=== PATIENT | female | born 1955 | race Caucasian/White ===

== ENCOUNTER → 2016-03-02 | Outpatient (CLI) | payer MEDICARE, OTHER ==
[2016-03-02 14:48] VITALS: BP 117/83; PULSE 68; RESP 16; TEMP 97.3; BMI 33.8
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
== END | disposition home or self-care (01) ==
LOC: BARWHC3 13:10
PROVIDERS: ATTEND Surgery
DX: Z48.815 Encounter for surgical aftercare following surgery on the digestive system (principal); Z98.84 Bariatric surgery status; F17.200 Nicotine dependence, unspecified, uncomplicated; Z86.14 Personal history of Methicillin resistant Staphylococcus aureus infection; K21.9 Gastro-esophageal reflux disease without esophagitis; L98.9 Disorder of the skin and subcutaneous tissue, unspecified
CPT/HCPCS: 99211

== ENCOUNTER → 2016-03-30 | Outpatient (CLI) | payer MEDICARE, OTHER ==
[2016-03-30 13:06] VITALS: BP 110/68; PULSE 75; RESP 16; TEMP 99.2; BMI 34.2
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
== END | disposition home or self-care (01) ==
LOC: BARWHC3 12:47
PROVIDERS: ATTEND Surgery
DX: Z48.815 Encounter for surgical aftercare following surgery on the digestive system (principal); Z98.84 Bariatric surgery status; K21.9 Gastro-esophageal reflux disease without esophagitis; Z68.34 Body mass index [BMI] 34.0-34.9, adult; Z86.14 Personal history of Methicillin resistant Staphylococcus aureus infection; F17.200 Nicotine dependence, unspecified, uncomplicated
CPT/HCPCS: 99211

== ENCOUNTER → 2016-04-27 | Outpatient (CLI) | payer MEDICARE, OTHER ==
[2016-04-27 13:17] VITALS: BP 105/60; PULSE 95; RESP 16; TEMP 98.3; BMI 32.1
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
== END | disposition home or self-care (01) ==
LOC: BARWHC3 12:52
PROVIDERS: ATTEND Surgery
DX: Z48.815 Encounter for surgical aftercare following surgery on the digestive system (principal); Z71.3 Dietary counseling and surveillance; K21.9 Gastro-esophageal reflux disease without esophagitis; Z68.32 Body mass index [BMI] 32.0-32.9, adult; F17.200 Nicotine dependence, unspecified, uncomplicated; Z79.899 Other long term (current) drug therapy; Z98.84 Bariatric surgery status
CPT/HCPCS: 97803; G0463; 99211

== ENCOUNTER → 2016-05-25 | Outpatient (CLI) | payer MEDICARE, OTHER ==
[2016-05-25 09:20] VITALS: BP 104/73; PULSE 77; TEMP 98.1; BMI 31.6
[2016-05-25 10:06] LABS: CH 27.7; CHCM 32.8; HCT 43.6 % (34.0-46.0); HDW 2.69; HGB 14.4 gm/dL (11.4-16.0); MCHC 33.1 g/dL (31.0-37.0); MCV 84.5 fL (80.0-100.0); Mean Platelet Volume 6.2; RBC 5.16 m/uL (3.80-5.40); RDW 14.6 % (11.5-15.5); WBC 4.4 k/uL (3.8-10.6)
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
[2016-05-25 15:10] LABS: ALT 19 U/L (9-52); AST 20 U/L (14-36); Alkaline Phosphatase 100 U/L (38-126); Anion Gap 9 mmol/L; Blood Urea Nitrogen 9 mg/dL (7-17); Calcium 9.8 mg/dL (8.4-10.2); Carbon Dioxide 28 mmol/L (22-30); Chloride 101 mmol/L (98-107); Glucose 91 mg/dL (74-99); Non-African American GFR(MDRD) >60 (>60 ml/min/1.73 sqM); Sodium 138 mmol/L (137-145); Total Bilirubin 0.5 mg/dL (0.2-1.3); Total Protein 6.5 g/dL (6.3-8.2)
[2016-05-25 16:15] LABS: Vitamin B12 445 pg/mL (239-931)
== END | disposition home or self-care (01) ==
LOC: BARWHC3 09:10
PROVIDERS: ATTEND Surgery
DX: Z09 Encounter for follow-up examination after completed treatment for conditions other than malignant neoplasm (principal); M79.7 Fibromyalgia; E78.5 Hyperlipidemia, unspecified; I25.2 Old myocardial infarction; M19.90 Unspecified osteoarthritis, unspecified site; F41.9 Anxiety disorder, unspecified; F32.9 Major depressive disorder, single episode, unspecified; F43.10 Post-traumatic stress disorder, unspecified; F17.200 Nicotine dependence, unspecified, uncomplicated; F20.9 Schizophrenia, unspecified; F41.0 Panic disorder [episodic paroxysmal anxiety]; E55.9 Vitamin D deficiency, unspecified; Z98.84 Bariatric surgery status
CPT/HCPCS: 84425; 80053; 82607; 82746; 84590; 85027; 82306; G0463; 99211

== ENCOUNTER → 2016-06-22 | Outpatient (CLI) | payer MEDICARE, OTHER ==
[2016-06-22 13:22] VITALS: BP 104/77; PULSE 76; RESP 16; TEMP 98.3; BMI 30.9
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
== END | disposition home or self-care (01) ==
LOC: BARWHC3 13:09
PROVIDERS: ATTEND Surgery
DX: Z09 Encounter for follow-up examination after completed treatment for conditions other than malignant neoplasm (principal); M79.7 Fibromyalgia; E78.5 Hyperlipidemia, unspecified; I25.2 Old myocardial infarction; F17.200 Nicotine dependence, unspecified, uncomplicated; Z98.84 Bariatric surgery status
CPT/HCPCS: 99211

== ENCOUNTER → 2016-08-11 | Outpatient (CLI) | payer MEDICARE, OTHER ==
--- NOTE | 2016-08-11 12:07 | XR ---
EXAMINATION TYPE: XR lumbar spine 2 or 3V DATE OF EXAM: 08/11/2016 COMPARISON: 01/28/2015 HISTORY: 60-year-old female with low back pain TECHNIQUE: 3 views FINDINGS: Cholecystectomy clips. Surgical staple lines at the GE junction and right paramedian upper abdomen. There is slight levoconvex curvature centered along the upper lumbar spine. 5 lumbar type ve rtebral bodies. Hypertrophic facet arthropathy mid to lower lumbar spine with redemonstrated prominen t grade 1 anterolisthesis at L4-L5. Otherwise, alignment is maintained and vertebral body heights are preserved. Moderate degenerative disc disease L5-S1 with disc space narrowing, endplate spondylosis, and vacuum phenomenon. IMPRESSION: 1. No vertebral compression collapse. 2. Redemonstrated hypertrophic facet arthropathy with prominent grade 1 L4-L5 anterolisthesis. 3. Moderate degenerative disc disease again seen at L5-S1.
== END | disposition home or self-care (01) ==
LOC: RADXRMAIN 11:39
PROVIDERS: ATTEND Family Medicine
DX: M43.16 Spondylolisthesis, lumbar region (principal); M51.37 Other intervertebral disc degeneration, lumbosacral region; M46.86 Other specified inflammatory spondylopathies, lumbar region
CPT/HCPCS: 72100

== ENCOUNTER → 2016-09-14 | Outpatient (CLI) | payer MEDICARE, OTHER ==
[2016-09-14 13:58] VITALS: BP 119/87; PULSE 66; RESP 16; TEMP 98.2; BMI 30.2
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
== END | disposition home or self-care (01) ==
LOC: BARWHC3 13:11
PROVIDERS: ATTEND Surgery
DX: Z09 Encounter for follow-up examination after completed treatment for conditions other than malignant neoplasm (principal); E78.5 Hyperlipidemia, unspecified; M79.7 Fibromyalgia; F17.200 Nicotine dependence, unspecified, uncomplicated; Z98.84 Bariatric surgery status; I25.2 Old myocardial infarction
CPT/HCPCS: 97803; G0463; 99211

== ENCOUNTER 2016-09-21 19:47 | Inpatient (IN) | payer MEDICARE, MEDICAID ==
[2016-09-21 20:35] LABS: Appearance,Urine Cloudy (Clear); Bacteria,Urine Occasional /hpf; Bilirubin,Urine Negative (Negative); Glucose,Urine (UA) Negative (Negative); Ketones,Urine Trace (Negative); Leukocyte Esterase,Urine Moderate (Negative); Mucus,Urine Many /hpf; Nitrite,Urine Positive (Negative); PH, Urine 6.5 (5.0-8.0); Particle Count 48731; Protein,Urine Trace (Negative); RBC,Urine 4 /hpf (0-5); Specific Gravity,Urine 1.009 (1.001-1.035); UA Billing (MACRO vs. MICRO) MICRO; Urobilinogen,Urine <2.0 mg/dL (<2.0); WBC,Urine 25 /hpf (0-5)
[2016-09-21] MEDS ORDERED: SULFAMETHOX-TMP 800-160MG 1 EACH TAB PO STA (20:39)
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
[2016-09-21] MEDS ORDERED: MAGNESIUM HYDROXIDE 2,400 MG/10 ML CUP PO PRN (23:33)
[2016-09-21] MEDS ORDERED: ACETAMINOPHEN TAB 325 MG TAB PO PRN (23:33)
[2016-09-21] MEDS ORDERED: MAG HYDROX/AL HYDROX/SIMETH 30 ML CUP PO PRN (23:33)
[2016-09-22] MEDS: ASPIRIN 325 MG TAB PO SCH ×2 (07:58→08:07)
[2016-09-22] MEDS: PANTOPRAZOLE 40 MG TABLET PO SCH (07:58)
[2016-09-22] MEDS: lamoTRIgine 100 MG TAB PO SCH ×2 (08:01→21:33)
[2016-09-22] MEDS: OXYBUTYNIN CHLORIDE 5 MG TAB PO SCH ×2 (08:02→08:05)
[2016-09-22] MEDS: NICOTINE 21MG/24HR PATCH TRANSDERM SCH ×2 (08:02→08:04)
[2016-09-22] MEDS: busPIRone HCl 5 MG TAB PO SCH ×3 (08:06→12:31)
[2016-09-22] MEDS: QUEtiapine 50 MG TAB PO SCH ×2 (08:07→16:04)
[2016-09-22] MEDS ORDERED: busPIRone HCl 5 MG TAB PO SCH (09:00)
[2016-09-22] MEDS ORDERED: QUEtiapine 50 MG TAB PO SCH (09:00)
[2016-09-22] MEDS ORDERED: VENLAFAXINE HCL ER 75 MG CAP PO SCH (09:00)
[2016-09-22 09:09] LABS: Basophils % (A) 0 %; CH 28.7; CHCM 33.2; Eosinophils % (A) 1 %; HCT 38.7 % (34.0-46.0); HDW 2.83; HGB 12.8 gm/dL (11.4-16.0); Luc # (Auto) 0.12; Luc % (Auto) 3; Lymphocytes # (A) 1.4 k/uL (1.0-4.8); Lymphocytes % (A) 32 %; MCH 28.8 pg (25.0-35.0); MCV 87.1 fL (80.0-100.0); Mean Platelet Volume 6.6; Monocytes # (A) 0.3 k/uL (0-1.0); Monocytes % (A) 6 %; Neutrophils # (A) 2.6 k/uL (1.3-7.7); Neutrophils % (A) 59 %; RBC 4.45 m/uL (3.80-5.40); RDW 13.9 % (11.5-15.5); WBC 4.4 k/uL (3.8-10.6); WBC (Perox) 5.06
[2016-09-22 09:21] LABS: ALT 21 U/L (9-52); AST 22 U/L (14-36); Alkaline Phosphatase 74 U/L (38-126); Anion Gap 6 mmol/L; Blood Urea Nitrogen 12 mg/dL (7-17); Carbon Dioxide 30 mmol/L (22-30); Chloride 105 mmol/L (98-107); Glucose 95 mg/dL (74-99); Non-African American GFR(MDRD) >60 (>60 ml/min/1.73 sqM); Potassium 3.2 mmol/L (3.5-5.1); Sodium 141 mmol/L (137-145); Total Bilirubin 0.5 mg/dL (0.2-1.3); Total Protein 6.1 g/dL (6.3-8.2)
[2016-09-22] MEDS: SYMBICORT 80-4.5 MCG INHALER INHALATION SCH ×2 (10:26→20:26)
[2016-09-22] MEDS: clonazePAM 0.5 MG TAB PO PRN ×2 (12:33→21:54)
[2016-09-22] MEDS: SERTRALINE 100 MG TAB PO SCH (13:26)
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
[2016-09-22] MEDS ORDERED: QUEtiapine 400 MG TAB PO SCH (21:00)
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
[2016-09-23] MEDS: busPIRone HCl 5 MG TAB PO SCH ×4 (08:36→20:55)
[2016-09-23] MEDS: QUEtiapine 50 MG TAB PO SCH (08:37)
[2016-09-23] MEDS: PANTOPRAZOLE 40 MG TABLET PO SCH (08:37)
[2016-09-23] MEDS: SERTRALINE 100 MG TAB PO SCH (08:37)
[2016-09-23] MEDS: VENLAFAXINE HCL ER 75 MG CAP PO SCH (08:37)
[2016-09-23] MEDS: lamoTRIgine 100 MG TAB PO SCH ×2 (08:38→20:54)
[2016-09-23] MEDS: NICOTINE 21MG/24HR PATCH TRANSDERM SCH (08:39)
[2016-09-23] MEDS: ASPIRIN 325 MG TAB PO SCH (08:39)
[2016-09-23] MEDS: clonazePAM 0.5 MG TAB PO PRN (08:40)
[2016-09-23] MEDS: HYDROcodone/APAP 5-325MG 1 EACH TAB PO PRN ×2 (08:40→20:58)
[2016-09-23] MEDS: SYMBICORT 80-4.5 MCG INHALER INHALATION SCH ×2 (09:22→21:02)
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
[2016-09-23] MEDS ORDERED: hydrOXYzine PAMOATE 25 MG CAP PO PRN (15:21)
[2016-09-23] MEDS: QUEtiapine 400 MG TAB PO SCH (20:54)
[2016-09-23] MEDS: clonazePAM 0.5 MG TAB PO SCH (20:54)
[2016-09-23] MEDS: QUEtiapine 100 MG TAB PO SCH (20:55)
[2016-09-23] MEDS: NITROFURANTOIN MONOHYD/M-CRYST 100 MG CAP PO SCH (23:28)
[2016-09-24] MEDS: PANTOPRAZOLE 40 MG TABLET PO SCH (08:02)
[2016-09-24] MEDS: NICOTINE 21MG/24HR PATCH TRANSDERM SCH (08:06)
[2016-09-24] MEDS: HYDROcodone/APAP 5-325MG 1 EACH TAB PO PRN ×2 (08:07→20:07)
[2016-09-24] MEDS: busPIRone HCl 5 MG TAB PO SCH ×3 (08:08→20:06)
[2016-09-24] MEDS: clonazePAM 0.5 MG TAB PO SCH ×2 (08:09→20:06)
[2016-09-24] MEDS: ASPIRIN 325 MG TAB PO SCH (08:09)
[2016-09-24] MEDS: OXYBUTYNIN CHLORIDE 5 MG TAB PO SCH (08:09)
[2016-09-24] MEDS: lamoTRIgine 100 MG TAB PO SCH ×2 (08:10→20:06)
[2016-09-24] MEDS: SERTRALINE 100 MG TAB PO SCH (08:10)
[2016-09-24] MEDS: NITROFURANTOIN MONOHYD/M-CRYST 100 MG CAP PO SCH ×2 (08:10→20:06)
[2016-09-24] MEDS: SYMBICORT 80-4.5 MCG INHALER INHALATION SCH ×2 (09:29→21:26)
[2016-09-24] MEDS: VENLAFAXINE HCL ER 75 MG CAP PO SCH (09:50)
--- NOTE | 2016-09-24 14:14 | P.PN ---
Progress Note - Text INTERVERAL HISTORY: Patient was discussed at treatment team meeting, record review, met with patient. Staff reports that patient continues to not allow us to contact anyone when her family. Patient reports today that she is feeling better, she denies suicidal ideation. When asked about having a reason to live she says she still does not have any reason but just plans on living. Asked when she'd be able to go home. She denies having any problems with the reduction in the Klonopin i.e. no anxiety no insomnia. She has plans to go camping starting next week hopes that she'll be out so she can go. She denies feeling hopeless denies feeling useless and denies suicidal ideation. MENTAL STATUS EXAM:Patient alert and oriented 3, good eye contact, well groomed in street clothing. Speech normal volume, rate and production. Coherent, logical and goal directed thought process. No LAZARO, no FOI. [No TB/TW/ TI] Denied auditory and visual hallucinations. Denied paranoid ideation, delusions or IOR. Mood euthymic, affect full range normal intensity, congruent with mood. Denies suicidal ideation, denies homicidal ideation. Insight limited; Judgment grossly intact for treatment purposes ASSESSMENT: Today patient has a completely different mood and affect, she is euthymic and full range, she denies suicidal ideation and today it seems more convincing than yesterday. Could possibly be that the Seroquel during the day was sedating enough that she gave an appearance of being depressed. She had no anxiety and no insomnia with the reduction of Klonopin. Major depressive disorder, recurrent, moderate PLAN: Continue inpatient psychiatric admission for safety and stabilization. Suicide precaution every 15 minute checks Reduce Klonopin .25MG twice a day. Reduce Effexor to 37.5 mg tomorrow morning Increase Zoloft to 150 mg daily. Continue Seroquel 500 mg at bedtime Milieu therapy Possible discharge tomorrow SW to arrange follow-up with Dr. Marie and Celine
[2016-09-24] MEDS: QUEtiapine 100 MG TAB PO SCH (20:06)
[2016-09-24] MEDS: QUEtiapine 400 MG TAB PO SCH (20:06)
[2016-09-25 06:41] VITALS: BP 116/62; PULSE 59; RESP 16; TEMP 98.1
[2016-09-25] MEDS: HYDROcodone/APAP 5-325MG 1 EACH TAB PO PRN ×2 (08:15→15:23)
[2016-09-25] MEDS: NICOTINE 21MG/24HR PATCH TRANSDERM SCH (08:16)
[2016-09-25] MEDS: PANTOPRAZOLE 40 MG TABLET PO SCH (08:16)
[2016-09-25] MEDS: clonazePAM 0.5 MG TAB PO SCH (08:16)
[2016-09-25] MEDS: lamoTRIgine 100 MG TAB PO SCH (08:17)
[2016-09-25] MEDS: busPIRone HCl 5 MG TAB PO SCH ×2 (08:17→16:05)
[2016-09-25] MEDS: ASPIRIN 325 MG TAB PO SCH (08:17)
[2016-09-25] MEDS: OXYBUTYNIN CHLORIDE 5 MG TAB PO SCH (08:17)
[2016-09-25] MEDS: SERTRALINE 100 MG TAB PO SCH (08:17)
[2016-09-25] MEDS: NITROFURANTOIN MONOHYD/M-CRYST 100 MG CAP PO SCH (08:18)
[2016-09-25] MEDS ORDERED: VENLAFAXINE HCL ER 37.5 MG CAP PO SCH (09:00)
[2016-09-25] MEDS: SYMBICORT 80-4.5 MCG INHALER INHALATION SCH (09:30)
--- NOTE | 2016-09-25 10:12 | P.DS ---
Providers Date of admission: 09/21/16 21:59 Expected date of discharge: 09/25/16 Attending physician: Latonia Townsend MD Consults: 09/21/16 23:33 Consult Physician Routine Consulting Provider: Sd Casillas Consult Reason/Comments: H and P Do you want consulting provider notified?: Yes 09/23/16 17:28 Consult Physician Routine Consulting Provider: Sd Casillas Consult Reason/Comments: Abnormal UA Do you want consulting provider notified?: Yes Primary care physician: Sd Casillas Hospital Course: BRIEF ADMISSION HISTORY: Patient was admitted after a two-month period of increasing depression. States she had been doing okay on a day-to-day basis and not bothered by serious depression until spring of this year then through the month of August the depression seemed to be building up for her. On Wednesday prior to the admission she was at a family gathering and she felt that her children were treating her in a demeaning way she reported that she took a pill that she is prescribed and her daughter told her that she was using too many of her medications. She then became suicidal after her son refused to speak with her she felt she had no reason to live and came to the hospital. HOSPITAL COURSE: Patient had recently seen her outpatient psychiatrist who is titrating Effexor down and starting Zoloft. She is also prescribed Seroquel at night and during the day. She also reportedly has a diagnosis of ADHD and is prescribed Adderall , and also Klonopin. Staff reported that there is some history of stimulant use or misuse. She was not reporting any auditory hallucinations, she was just feeling that life was not worth living. Patient did not participate in any of the groups she was found frequently in her room reading or laying down stating that she was not sleeping. Rviewed her medication and made a recommendation that we continue to increase the Zoloft and taper down on the Effexor. Increase BuSpar 15 mg 3 times a day. She agreed we also changed the time of her quetiapine/Seroquel so that is taken all at bedtime. At the same time we decided to reduce her Klonopin with also the recommendation that she not take a stimulant. She was less enthusiastic about this change. She tolerated this change without any increase in anxiety and she became more interactive, with full affect. By the last 2 days of her admission she was participating with groups and communicating more with staff and other patients. Patient reported that she felt better, more alert, and did not notice any increase in anxiety with the reduction of the Klonopin. She asked what to do when she has a panic attack we recommended that she use the Vistaril as a first line and that if she doesn't feel better within an hour that she could use the when necessary dose of Klonopin but that it should not be used on a daily basis. She denied suicidal ideation however she refused to allow us to have a family conference her reasoning was that she doesn't get support when she is home why should she ask for support while she is in the hospital. We've visited this several times to see if she would change her mind and she did not but on the last day she did call her daughter and her daughter offered to come pick her up rather than she taking the bus home. No psychosis, no nicolás, no hypomania. No suicidal ideation, no plan. DISCHARGE DIAGNOSES: MDD vs Schizoaffective disorder, Suicide ideation, resolved Family conflict R/O stimulant use disorder R/O benzodiazepine use disorder PLAN: Discharge today. Medication change: Discontinue Effexor. Continue Zoloft 100 mg daily. Seroquel 500 mg daily at bedtime, no daytime dosage. Discontinue Adderall. Vistaril 25 mg by mouth 4 times a day when necessary anxiety Klonopin 0.25 mg daily PRN severe anxiety, strived to not use on a daily basis and eventually stop completely. Pertinent Studies: none Procedures: none Plan - Discharge Summary New Discharge Prescriptions: New busPIRone HCl [Buspar] 15 mg PO TID #90 tab clonazePAM [KlonoPIN] 0.25 mg PO DAILY PRN #30 tab PRN Reason: Anxiety hydrOXYzine PAMOATE [Vistaril] 25 mg PO QID PRN #120 cap PRN Reason: Anxiety Nitrofurantoin Monohyd/M-Cryst [Macrobid] 100 mg PO BID #20 cap QUEtiapine [SEROquel] 100 mg PO HS #30 tab Sertraline [Zoloft] 100 mg PO DAILY #30 tab Continue Oxybutynin Chloride [Ditropan] 10 mg PO DAILY Aspirin 325 mg PO DAILY Fluticasone/Vilanterol [Breo Ellipta 100-25 Mcg Inhaler] 1 puff INHALATION RT -DAILY HYDROcodone/APAP 10-325MG [[place] 10-325] 1 tab PO Q6H PRN #28 tab PRN Reason: Pain QUEtiapine [SEROquel] 400 mg PO HS lamoTRIgine [LaMICtal] 100 mg PO BID Omeprazole [PriLOSEC] 40 mg PO DAILY Discontinued busPIRone HCL [Buspar] 15 mg PO BID #60 tablet Dextroamphetamine/Amphetamine [Adderall] 20 mg PO BID QUEtiapine [SEROquel] 50 mg PO BID clonazePAM [KlonoPIN] 0.5 mg PO BID busPIRone HCl [Buspar] 5 mg PO QAM Venlafaxine HCl ER [Effexor XR] 75 mg PO BID clonazePAM [KlonoPIN] 1 mg PO HS Sertraline [Zoloft] 25 mg PO QAM Discharge Medication List Aspirin 325 mg PO DAILY 07/15/13 [History] Oxybutynin Chloride [Ditropan] 10 mg PO DAILY 07/15/13 [History] Fluticasone/Vilanterol [Breo Ellipta 100-25 Mcg Inhaler] 1 puff INHALATION RT- DAILY 07/01/15 [History] HYDROcodone/APAP 10-325MG [[place] 10-325] 1 tab PO Q6H PRN #28 tab 07/10/15 [Rx] QUEtiapine [SEROquel] 400 mg PO HS 01/16/16 [History] Omeprazole [PriLOSEC] 40 mg PO DAILY 09/21/16 [History] lamoTRIgine [LaMICtal] 100 mg PO BID 09/21/16 [History] Nitrofurantoin Monohyd/M-Cryst [Macrobid] 100 mg PO BID #20 cap 09/25/16 [Rx] QUEtiapine [SEROquel] 100 mg PO HS #30 tab 09/25/16 [Rx] Sertraline [Zoloft] 100 mg PO DAILY #30 tab 09/25/16 [Rx] busPIRone HCl [Buspar] 15 mg PO TID #90 tab 09/25/16 [Rx] clonazePAM [KlonoPIN] 0.25 mg PO DAILY PRN #30 tab 09/25/16 [Rx] hydrOXYzine PAMOATE [Vistaril] 25 mg PO QID PRN #120 cap 09/25/16 [Rx] Follow up Appointment(s)/Referral(s): Sd Casillas MD [Primary Care Provider] - 1-2 days
== END 2016-09-25 17:15 | disposition home or self-care (01) | DRG 885 ==
LOC: EC 19:47 → 3MHU 21:59
PROVIDERS: ADMIT Psychiatry & Neurology Addiction Medicine; ATTEND Psychiatry & Neurology Addiction Medicine
DX: F33.1 Major depressive disorder, recurrent, moderate (principal); R45.851 Suicidal ideations; G62.9 Polyneuropathy, unspecified; F25.0 Schizoaffective disorder, bipolar type; E78.5 Hyperlipidemia, unspecified; F17.200 Nicotine dependence, unspecified, uncomplicated; F41.0 Panic disorder [episodic paroxysmal anxiety]; F43.10 Post-traumatic stress disorder, unspecified; F90.9 Attention-deficit hyperactivity disorder, unspecified type; I25.2 Old myocardial infarction; M19.90 Unspecified osteoarthritis, unspecified site; M79.7 Fibromyalgia; G89.29 Other chronic pain; M54.9 Dorsalgia, unspecified; F41.9 Anxiety disorder, unspecified; Z62.810 Personal history of physical and sexual abuse in childhood; Z63.9 Problem related to primary support group, unspecified; Z79.82 Long term (current) use of aspirin; Z79.899 Other long term (current) drug therapy; Z91.410 Personal history of adult physical and sexual abuse; Z96.653 Presence of artificial knee joint, bilateral; Z86.14 Personal history of Methicillin resistant Staphylococcus aureus infection; Z91.5 Personal history of self-harm; Z98.84 Bariatric surgery status
CPT/HCPCS: 80053; 80306; 81001; 82075; 85025; 87086; 94640; 99285

== ENCOUNTER → 2016-10-26 | Outpatient (CLI) | payer MEDICARE, OTHER ==
[2016-10-26 15:06] VITALS: BP 113/83; PULSE 61; RESP 16; TEMP 98.3; BMI 27.8
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
== END ==
LOC: BARWHC3 14:08
PROVIDERS: ATTEND Surgery
DX: Z48.815 Encounter for surgical aftercare following surgery on the digestive system (principal); Z98.84 Bariatric surgery status; K21.9 Gastro-esophageal reflux disease without esophagitis; F17.200 Nicotine dependence, unspecified, uncomplicated
CPT/HCPCS: 99211

== ENCOUNTER → 2016-12-21 | Outpatient (CLI) | payer MEDICARE, OTHER ==
[2016-12-21 14:23] VITALS: BMI 25.9
[2016-12-21 15:13] VITALS: BP 118/75; PULSE 68; RESP 15; TEMP 97.1
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
== END ==
LOC: BARWHC3 13:14
PROVIDERS: ATTEND Surgery
DX: Z48.815 Encounter for surgical aftercare following surgery on the digestive system (principal); Z98.84 Bariatric surgery status; F17.200 Nicotine dependence, unspecified, uncomplicated
CPT/HCPCS: 97803; G0463; 99211

== ENCOUNTER → 2017-06-10 | Outpatient (CLI) | payer MEDICARE, OTHER ==
--- NOTE | 2017-06-10 18:11 | CTL ---
EXAMINATION TYPE: CT Low Dose Lung DATE OF EXAM ORDERED: 06/10/2017 HISTORY: . Lung cancer screening CT DLP: [address] CTDI: 2.2 mGy Automated exposure control for dose reduction was used. SCREENING VISIT: Follow-up COMPARISON: 08/14/2015 TECHNIQUE: Low dose computed tomography scan was performed through the chest at 1 mm thick sections a nd reconstructed images in the coronal plane at [address] DIAGNOSTIC QUALITY: Satisfactory FINDINGS: LUNG NODULES: None. LUNGS: COPD: Severity: Mild Fibrosis: Severity: None Lymph nodes: None Other findings: None RIGHT PLEURAL SPACE: Effusion: None Calcification: None Thickening: None Pneumothorax: None LEFT PLEURAL SPACE: Effusion: None Calcification: None Thickening: None Pneumothorax: None HEART: Heart Size: Normal Coronary calcification: Moderate Pericardial effusion: None OTHER FINDINGS: Upper abdomen: Small hiatal hernia is present. Upper abdomen is unremarkable. Bony thorax: Normal Supraclavicular region: Normal Other: Ascending thoracic aorta at the level the main pulmonary artery is 3.5 cm. The main pulmonary artery the bifurcation is 2.5 cm. IMPRESSION: No suspicious changes. FOLLOW UP CT CHEST RECOMMENDATION: Low dose screening CT per protocol CT LUNG RAD: Lung-Rad 1 Negative
== END | disposition home or self-care (01) ==
LOC: RADCTMAIN 14:36
PROVIDERS: ATTEND Family Medicine
DX: Z12.2 Encounter for screening for malignant neoplasm of respiratory organs (principal); Z87.891 Personal history of nicotine dependence

== ENCOUNTER → 2017-07-19 | Outpatient (CLI) | payer MEDICARE, OTHER ==
[2017-07-19 15:03] VITALS: BP 118/87; PULSE 67; TEMP 98.2; BMI 28.2
[2017-07-19 15:46] LABS: HCT 36.5 % (34.0-46.0); MCH 27.2 pg (25.0-35.0); MCHC 32.8 g/dL (31.0-37.0); MCV 83.2 fL (80.0-100.0); Mean Platelet Volume 6.1; Platelet Count 291 k/uL (150-450); RBC 4.39 m/uL (3.80-5.40); RDW 14.9 % (11.5-15.5); WBC 4.7 k/uL (3.8-10.6)
[2017-07-19 15:56] LABS: ALT 25 U/L (9-52); AST 22 U/L (14-36); Albumin 4.2 g/dL (3.5-5.0); Alkaline Phosphatase 90 U/L (38-126); Anion Gap 10 mmol/L; Blood Urea Nitrogen 17 mg/dL (7-17); Calcium 9.8 mg/dL (8.4-10.2); Carbon Dioxide 29 mmol/L (22-30); Chloride 105 mmol/L (98-107); Glucose 86 mg/dL (74-99); Potassium 4.1 mmol/L (3.5-5.1); Sodium 144 mmol/L (137-145); Total Bilirubin 0.3 mg/dL (0.2-1.3); Total Protein 6.4 g/dL (6.3-8.2)
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
[2017-07-20 02:14] LABS: Vitamin D 25 Hydroxy 52.1 ng/mL (30.0-100.0)
[2017-07-20 14:01] LABS: Vitamin A 32 ug/dL (38-106)
[2017-07-21 05:43] LABS: Vitamin B1 53 ug/L (38-122)
== END | disposition home or self-care (01) ==
LOC: BARWHC3 13:59
PROVIDERS: ATTEND Surgery
DX: Z48.815 Encounter for surgical aftercare following surgery on the digestive system (principal); K21.9 Gastro-esophageal reflux disease without esophagitis; E66.01 Morbid (severe) obesity due to excess calories; E44.0 Moderate protein-calorie malnutrition; E55.9 Vitamin D deficiency, unspecified; F17.200 Nicotine dependence, unspecified, uncomplicated; Z68.28 Body mass index [BMI] 28.0-28.9, adult; Z98.84 Bariatric surgery status
CPT/HCPCS: 84425; 80053; 82607; 84443; 84590; 85027; 82306; 36415; G0463; 99211

== ENCOUNTER 2017-08-13 16:00 | Emergency (ER) | payer MEDICARE, OTHER ==
[2017-08-13 16:22] VITALS: BP 93/64; PULSE 90; RESP 18; TEMP 98.2
[2017-08-13] MEDS ORDERED: PROPARACAINE 0.5% OPHTH DROPS 15 ML BTL RIGHT EYE STA (16:45)
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
[2017-08-13 17:34] LABS: Basophils % (A) 1 %; Eosinophils # (A) 0.2 k/uL (0-0.7); Eosinophils % (A) 4 %; HCT 35.7 % (34.0-46.0); HGB 11.6 gm/dL (11.4-16.0); Lymphocytes # (A) 1.5 k/uL (1.0-4.8); Lymphocytes % (A) 31 %; MCH 26.7 pg (25.0-35.0); MCHC 32.6 g/dL (31.0-37.0); Mean Platelet Volume 6.3; Monocytes # (A) 0.3 k/uL (0-1.0); Monocytes % (A) 5 %; Neutrophils # (A) 2.7 k/uL (1.3-7.7); Neutrophils % (A) 58 %; Platelet Count 288 k/uL (150-450); RBC 4.36 m/uL (3.80-5.40); RDW 15.3 % (11.5-15.5); WBC 4.7 k/uL (3.8-10.6)
[2017-08-13 17:52] LABS: ALT 26 U/L (9-52); AST 28 U/L (14-36); Albumin 4.2 g/dL (3.5-5.0); Alkaline Phosphatase 79 U/L (38-126); Anion Gap 9 mmol/L; Blood Urea Nitrogen 21 mg/dL (7-17); C Reactive Protein <5.0 mg/L (<10.0); Calcium 9.4 mg/dL (8.4-10.2); Carbon Dioxide 25 mmol/L (22-30); Chloride 105 mmol/L (98-107); Glucose 68 mg/dL (74-99); Sodium 139 mmol/L (137-145); Total Bilirubin 0.4 mg/dL (0.2-1.3); Total Protein 6.7 g/dL (6.3-8.2)
--- NOTE | 2017-08-13 18:04 | CT ---
EXAMINATION TYPE: CT orbits w con DATE OF EXAM: 08/13/2017 COMPARISON: NONE HISTORY: right eye pain, swelling, redness, loss of vision. CT DLP: 350 mGycm Automated exposure control for dose reduction was used. CONTRAST: Performed with IV Contrast, patient injected with 100 mL of Isovue 300. FINDINGS: There is normal aeration of the paranasal sinuses. There is bilateral patency of the ostiomeatal comp nick. There is no evidence of blowout fracture. Orbital margins are intact. There is no evidence of re tro-orbital mass. The globes are symmetric. There is no pathologic enhancement. Extraocular muscles a re symmetric. The maxilla is intact. There is no evidence of a sellar mass. Optic chiasm appears normal. Pituitary stalk is in the midline . IMPRESSION: NORMAL CT SCAN OF THE ORBITS.
== END 2017-08-13 19:20 | disposition home or self-care (01) ==
LOC: EC 16:00
DX: H10.9 Unspecified conjunctivitis (principal); L03.213 Periorbital cellulitis; I25.2 Old myocardial infarction; M19.90 Unspecified osteoarthritis, unspecified site; F41.9 Anxiety disorder, unspecified; F31.9 Bipolar disorder, unspecified; F43.10 Post-traumatic stress disorder, unspecified; F25.9 Schizoaffective disorder, unspecified; F17.200 Nicotine dependence, unspecified, uncomplicated; Z86.14 Personal history of Methicillin resistant Staphylococcus aureus infection; Z79.51 Long term (current) use of inhaled steroids; Z79.82 Long term (current) use of aspirin; Z79.899 Other long term (current) drug therapy
CPT/HCPCS: 36415; 80053; 85025; 86140; 87040; 70481; 99284; Q9967

== ENCOUNTER → 2017-08-16 | Outpatient (CLI) | payer MEDICARE, OTHER ==
[2017-08-16 15:58] LABS: Basophils % (A) 0 %; Eosinophils # (A) 0.3 k/uL (0-0.7); Eosinophils % (A) 6 %; HCT 35.5 % (34.0-46.0); HGB 11.4 gm/dL (11.4-16.0); Lymphocytes # (A) 1.4 k/uL (1.0-4.8); Lymphocytes % (A) 26 %; MCH 26.5 pg (25.0-35.0); MCV 82.8 fL (80.0-100.0); Mean Platelet Volume 6.5; Monocytes # (A) 0.3 k/uL (0-1.0); Monocytes % (A) 5 %; Neutrophils # (A) 3.4 k/uL (1.3-7.7); Neutrophils % (A) 61 %; Platelet Count 285 k/uL (150-450); RBC 4.29 m/uL (3.80-5.40); RDW 15.4 % (11.5-15.5); WBC 5.5 k/uL (3.8-10.6)
--- NOTE | 2017-08-16 16:26 | CT ---
EXAMINATION TYPE: CT sinus w con DATE OF EXAM: 08/16/2017 COMPARISON: CT orbits 08/13/2017 HISTORY: Attention orbits. Right eye swelling and redness x [address] DLP: 639 mGycm Automated exposure control for dose reduction was used. CONTRAST: CT scan of the facial bones is performed with IV Contrast, patient injected with 100 mL of Isovue M30 0. TECHNIQUE: CT scan of the sinuses is performed without contrast, axial images are obtained, coronal r eformatted images are also reviewed. FINDINGS: The paranasal sinuses including the frontal, ethmoid, sphenoid, and maxillary sinuses bila terally are well-aerated without abnormal opacification. The ostiomeatal complex is patent bilateral ly on the coronal images. Asymmetric increased size of the lacrimal gland on the right as compared to left. No evident abscess. Visualized portion of mastoid air cells show no abnormal opacification. The globes are intact bilate rally. IMPRESSION: Dacryoadenitis suspected right lacrimal gland
== END | disposition home or self-care (01) ==
LOC: RADCTMAIN 15:20
PROVIDERS: ATTEND Ophthalmology
DX: H04.009 Unspecified dacryoadenitis, unspecified lacrimal gland (principal); H05.011 Cellulitis of right orbit
CPT/HCPCS: 85025; 87040; 36415; 70487; Q9967

== ENCOUNTER → 2017-09-06 | Outpatient (CLI) | payer MEDICARE, OTHER ==
--- NOTE | 2017-09-06 15:47 | XR ---
EXAMINATION TYPE: XR abdomen 2V DATE OF EXAM: 09/06/2017 CLINICAL DATA: 61 year-old female with vomiting, [facility] COMPARISON: Upper GI 01/21/2016 FINDINGS: S-shaped scoliosis. Surgical clips below the GE junction and mid abdomen as well as cholecystectomy c lips. Nonobstructive bowel gas pattern. No dilated bowel or free air. Mild stool burden. Multiple phleboliths in the pelvis. No suspicious calcifications are seen. IMPRESSION: Status post sleeve gastrectomy. No evidence of bowel obstruction or free intraperitoneal air.
== END | disposition home or self-care (01) ==
LOC: RADXRMAIN 12:37
PROVIDERS: ATTEND Family Medicine
DX: R19.7 Diarrhea, unspecified (principal); R11.10 Vomiting, unspecified; Z90.3 Acquired absence of stomach [part of]
CPT/HCPCS: 74019

== ENCOUNTER → 2017-09-20 | Outpatient (CLI) | payer MEDICARE, OTHER ==
[2017-09-20 13:13] VITALS: BP 137/83; PULSE 80; TEMP 98.2
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
[2017-09-21 13:46] VITALS: BMI 26.6
== END | disposition home or self-care (01) ==
LOC: BARWHC3 13:01
PROVIDERS: ATTEND Surgery
DX: Z09 Encounter for follow-up examination after completed treatment for conditions other than malignant neoplasm (principal); F17.200 Nicotine dependence, unspecified, uncomplicated; K21.9 Gastro-esophageal reflux disease without esophagitis; Z98.84 Bariatric surgery status; Z90.49 Acquired absence of other specified parts of digestive tract; Z95.5 Presence of coronary angioplasty implant and graft; Z98.890 Other specified postprocedural states; Z96.653 Presence of artificial knee joint, bilateral
CPT/HCPCS: 99211

== ENCOUNTER → 2017-09-30 | Outpatient (CLI) | payer MEDICARE, OTHER ==
[2017-09-30 19:06] LABS: Basophils % (A) 0 %; Eosinophils # (A) 0.1 k/uL (0-0.7); Eosinophils % (A) 2 %; HCT 36.7 % (34.0-46.0); Lymphocytes # (A) 1.4 k/uL (1.0-4.8); Lymphocytes % (A) 19 %; MCH 26.3 pg (25.0-35.0); MCHC 32.6 g/dL (31.0-37.0); MCV 80.5 fL (80.0-100.0); Mean Platelet Volume 6.3; Monocytes # (A) 0.3 k/uL (0-1.0); Monocytes % (A) 4 %; Neutrophils # (A) 5.6 k/uL (1.3-7.7); Neutrophils % (A) 75 %; Platelet Count 366 k/uL (150-450); RBC 4.56 m/uL (3.80-5.40); RDW 14.4 % (11.5-15.5); WBC 7.6 k/uL (3.8-10.6)
[2017-09-30 19:21] LABS: Albumin 4.1 g/dL (3.5-5.0); Calcium 9.3 mg/dL (8.4-10.2); Total Bilirubin 0.3 mg/dL (0.2-1.3); Total Protein 6.6 g/dL (6.3-8.2)
[2017-09-30 19:54] LABS: Erythrocyte Sedimentation Rate 8 mm/hr (0-20)
--- NOTE | 2017-09-30 23:22 | MR ---
EXAMINATION TYPE: MR brain/orbits wo/w con DATE OF EXAM: 09/30/2017 COMPARISON: February 16, 2014 HISTORY: Headaches, Dizzy, Visual loss, Gadavist 7.5 TECHNIQUE: Multiplanar, multisequence images of the brain and brainstem is performed without and with IV contras t, utilizing 7.5 mL intravenous Gadavist . FINDINGS: Ventricles of normal size. There is no mass effect nor midline shift. There is no sign of i ntracranial hemorrhage. There is minimal cerebral cortical atrophy. Brainstem is intact. On the FLAIR images there is a single 3 mm focus of increased signal at the carpenter-white matter junction right post erior frontal lobe. This is stable compared to old exam. Corpus callosum appears normal. Sella turcic a is normal. There is no evidence of a cortical infarct. There is no retro-orbital mass. The globes a re symmetric. There is no evidence of pathologic enhancement. Optic chiasm appears normal. Pituitary stalk is in the midline. IMPRESSION: Negative MR scan of the brain. I do not see a cause for the patient's symptoms. Minimal w wilberto matter changes are diminished compared to old exam. No orbital abnormality seen.
[2017-10-01 01:36] LABS: Anti-DNA, DS unit <1.0 IU/mL; DNA Double-Stranded NEGATIVE (NEGATIVE)
[2017-10-02 04:48] LABS: Angiotensin-1 Converting Enz. 39 U/L (8-52)
[2017-10-02 13:33] LABS: HLA B27 NEGATIVE
== END | disposition home or self-care (01) ==
LOC: RADMRIMAIN 18:21
PROVIDERS: ATTEND Ophthalmology
DX: H54.7 Unspecified visual loss (principal)
CPT/HCPCS: 85549; 86812; 80053; 85652; 82164; 85025; 86618; 86780; 86038; 86225; 70543; 70553; 36415; A9581

== ENCOUNTER → 2018-02-25 | Outpatient (CLI) | payer MEDICARE, OTHER ==
[2018-02-25 19:13] LABS: Hemoglobin A1C 5.4 % (4.0-6.0)
== END | disposition home or self-care (01) ==
LOC: LABWHC1 10:58
PROVIDERS: ATTEND Psychiatry & Neurology Neurology
DX: G60.8 Other hereditary and idiopathic neuropathies (principal); G56.03 Carpal tunnel syndrome, bilateral upper limbs; R29.6 Repeated falls
CPT/HCPCS: 36415; 82607; 82947; 83036

== ENCOUNTER → 2019-03-13 | Outpatient (CLI) | payer MEDICARE, OTHER ==
[2019-03-13 13:04] VITALS: BP 109/74; PULSE 61; RESP 16; TEMP 98.1; BMI 26.2
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
== END | disposition home or self-care (01) ==
LOC: BARWHC3 12:50
PROVIDERS: ATTEND Surgery
DX: Z48.815 Encounter for surgical aftercare following surgery on the digestive system (principal); K21.9 Gastro-esophageal reflux disease without esophagitis; F17.200 Nicotine dependence, unspecified, uncomplicated; Z90.49 Acquired absence of other specified parts of digestive tract; Z98.84 Bariatric surgery status
CPT/HCPCS: 99211

== ENCOUNTER 2020-04-11 07:53 | Day surgery (SDC) | payer MEDICARE, OTHER ==
[2020-04-09 11:20] VITALS: BMI 23.3
[~2020-04-11 07:53] MED LIST: LIDOCAINE 1% (10MG/ML) FOR IV START INTRADERMA PRN
[2020-04-11 08:43] VITALS: TEMP 97.8
[2020-04-11] MEDS: LACTATED RINGERS 1,000 ML IV SCH ×2 (08:43→09:16)
[2020-04-11] MEDS ORDERED: PROPOFOL 10 MG/ML 20 ML VIAL IV ONE (09:17)
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
--- NOTE | 2020-04-11 09:40 | P.OP ---
Date of Procedure: 04/11/20 Preoperative Diagnosis: Screening colonoscopy Postoperative Diagnosis: Poor colonic prep Normal colonoscopy to transverse colon Procedure(s) Performed: Colonoscopy Anesthesia: MAC Surgeon: Jose Alejandro Madera Pathology: none sent Condition: stable Disposition: PACU Description of Procedure: The patient's placed on the endoscopy table in the lateral position. She received IV sedation. Digital rectal exam was performed which revealed a large amount stool examined finger possible colonoscope was then placed patient anus passed with colon. The scope couldn't be passed beyond the transverse colon secondary to a large amount of retained stool. The scope was withdrawn. The remaining transverse colon descending colon and; appeared normal however due to the amount of liquid stool the mucosa was not easily visualized. The scope was then brought back the rectum this appeared normal. Scope withdrawn for patient.
[2020-04-11 10:04] VITALS: BP 114/76; PULSE 77; RESP 20
== END 2020-04-11 10:32 | disposition home or self-care (01) ==
LOC: ORWHC2ENDO 07:53
PROVIDERS: ATTEND Surgery
DX: Z12.11 Encounter for screening for malignant neoplasm of colon (principal); J45.909 Unspecified asthma, uncomplicated; M79.7 Fibromyalgia; K21.9 Gastro-esophageal reflux disease without esophagitis; E78.5 Hyperlipidemia, unspecified; I25.2 Old myocardial infarction; M19.90 Unspecified osteoarthritis, unspecified site; G62.9 Polyneuropathy, unspecified; G89.29 Other chronic pain; M54.9 Dorsalgia, unspecified; I25.10 Atherosclerotic heart disease of native coronary artery without angina pectoris; I10 Essential (primary) hypertension; F17.210 Nicotine dependence, cigarettes, uncomplicated; F90.9 Attention-deficit hyperactivity disorder, unspecified type; F41.9 Anxiety disorder, unspecified; F31.9 Bipolar disorder, unspecified; F41.0 Panic disorder [episodic paroxysmal anxiety]; Z86.14 Personal history of Methicillin resistant Staphylococcus aureus infection; Z98.84 Bariatric surgery status; Z90.49 Acquired absence of other specified parts of digestive tract; Z96.653 Presence of artificial knee joint, bilateral; Z98.890 Other specified postprocedural states; Z97.2 Presence of dental prosthetic device (complete) (partial); Z82.3 Family history of stroke; Z81.8 Family history of other mental and behavioral disorders; Z80.49 Family history of malignant neoplasm of other genital organs; Z80.41 Family history of malignant neoplasm of ovary; Z80.3 Family history of malignant neoplasm of breast; Z79.82 Long term (current) use of aspirin; Z79.51 Long term (current) use of inhaled steroids; Z79.899 Other long term (current) drug therapy
CPT/HCPCS: J2704; G0121

== ENCOUNTER 2020-12-11 19:32 | Observation (INO) | payer MEDICARE, OTHER ==
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
[2020-12-11 20:25] LABS: Anisocytosis Slight; Basophils % (A) 1 %; Eosinophils # (A) 0.3 k/uL (0-0.7); Eosinophils % (A) 7 %; HCT 29.2 % (34.0-46.0); HGB 9.2 gm/dL (11.4-16.0); Hypochromasia Slight; Lymphocytes # (A) 0.8 k/uL (1.0-4.8); Lymphocytes % (A) 19 %; MCH 21.9 pg (25.0-35.0); MCHC 31.3 g/dL (31.0-37.0); Mean Platelet Volume 6.4; Microcytosis Marked; Monocytes # (A) 0.2 k/uL (0-1.0); Monocytes % (A) 5 %; Neutrophils # (A) 2.8 k/uL (1.3-7.7); Neutrophils % (A) 66 %; Platelet Count 270 k/uL (150-450); RBC 4.18 m/uL (3.80-5.40); RDW 19.2 % (11.5-15.5); WBC 4.2 k/uL (3.8-10.6)
[2020-12-11 20:37] LABS: Acetaminophen <10.0 ug/mL; African American GFR (CKD) >90 (>60 ml/min/1.73 sqM); Alcohol <10 mg/dL; Anion Gap 4 mmol/L; Blood Urea Nitrogen 14 mg/dL (7-17); Calcium 9.2 mg/dL (8.4-10.2); Carbon Dioxide 26 mmol/L (22-30); Chloride 105 mmol/L (98-107); Creatine Kinase 106 U/L (30-135); Glucose 93 mg/dL (74-99); Non-African American GFR(CKD) >90 (>60 ml/min/1.73 sqM); Potassium 3.9 mmol/L (3.5-5.1); Salicylate <1.0 mg/dL; Sodium 135 mmol/L (137-145)
[2020-12-11 20:43] LABS: INR 0.9 (<1.2); Prothrombin Time 9.7 sec (9.0-12.0)
[2020-12-11 20:49] LABS: Partial Thromboplastin Time 21.7 sec (22.0-30.0)
--- NOTE | 2020-12-11 21:02 | XR ---
EXAMINATION TYPE: XR chest 1V portable DATE OF EXAM: 12/11/2020 COMPARISON: 07/15/2013 HISTORY: Syncope TECHNIQUE: FINDINGS: There is no heart failure nor confluent pneumonic infiltrate. Costophrenic angles are clear . There are chest leads. There is slight elevated right diaphragm. IMPRESSION: Mild elevation of the right diaphragm slightly increased compared to old exam.
--- NOTE | 2020-12-11 21:05 | CT ---
EXAMINATION TYPE: CT brain wo con DATE OF EXAM: 12/11/2020 COMPARISON: 05/21/2014 HISTORY: ams CT DLP: 1084.4 mGycm Automated exposure control for dose reduction was used. Ventricles and sulci appear normal. There is no mass effect nor midline shift. There is no sign of in tracranial hemorrhage. There is mild cerebral atrophy appropriate for age. The calvarium is intact. S kull base is intact. IMPRESSION: Mild atrophy. No acute intracranial abnormality. No change.
[2020-12-11] MEDS ORDERED: NALOXONE 0.4 MG/ML 1 ML VIAL IV PRN (22:17)
[2020-12-11 22:37] LABS: Amphetamine Screen,Urine Not Detected (NotDetected); Benzodiazepines Screen,Urine Not Detected (NotDetected); Cocaine Screen,Urine Not Detected (NotDetected); Opiate Screen,Urine Not Detected (NotDetected); Phencyclidine Screen,Urine Not Detected (NotDetected); Tricyclic Antidepressant,Urine Detected (NotDetected); Urn Cannabinoid Scrn Not Detected (NotDetected)
[2020-12-11 22:38] LABS: Barbiturate Screen,Urine Not Detected (NotDetected); Methadone Screen, Urine Not Detected (NotDetected); Oxycodone Screen, Urine Not Detected (NotDetected)
[2020-12-11] MEDS: SODIUM CHLORIDE 0.9% 1,000 ML IV SCH (22:43)
[2020-12-12] MEDS ORDERED: ALBUTEROL NEBULIZED 2.5 MG/3 ML INHALATION PRN (08:47)
[2020-12-12] MEDS ORDERED: IBUPROFEN 600 MG TAB PO PRN (08:47)
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
[2020-12-12] MEDS: OXYBUTYNIN 10 MG TAB.ER.24 PO SCH (10:18)
[2020-12-12] MEDS: SERTRALINE 100 MG TAB PO SCH (10:18)
[2020-12-12] MEDS: lamoTRIgine 100 MG TAB PO SCH ×2 (10:19→20:19)
[2020-12-12] MEDS: FAMOTIDINE 20 MG TAB PO SCH ×2 (10:19→20:19)
[2020-12-12] MEDS ORDERED: ATORVASTATIN 10 MG TAB PO SCH (21:00)
[2020-12-12] MEDS ORDERED: QUEtiapine 400 MG TAB PO SCH (21:00)
[2020-12-12] MEDS: SODIUM CHLORIDE 0.9% 1,000 ML IV SCH (22:48)
[2020-12-12] MEDS: NICOTINE 21MG/24HR PATCH TRANSDERM SCH (22:49)
[2020-12-13 07:09] VITALS: BP 91/58; PULSE 59; RESP 16; TEMP 97.6
[2020-12-13] MEDS ORDERED: traMADol 50 MG TAB PO PRN (07:46)
[2020-12-13] MEDS: FAMOTIDINE 20 MG TAB PO SCH (07:47)
[2020-12-13] MEDS: OXYBUTYNIN 10 MG TAB.ER.24 PO SCH (07:49)
[2020-12-13] MEDS: lamoTRIgine 100 MG TAB PO SCH (07:49)
[2020-12-13] MEDS: SERTRALINE 100 MG TAB PO SCH (07:49)
[2020-12-13] MEDS: NICOTINE 21MG/24HR PATCH TRANSDERM SCH (07:49)
[2020-12-13] MEDS ORDERED: SYMBICORT 80-4.5 MCG INHALER INHALATION SCH (08:00)
[2020-12-13] MEDS ORDERED: QUEtiapine 50 MG TAB PO SCH (09:00)
[2020-12-13 09:40] LABS: Anisocytosis Slight; Basophils % (A) 0 %; Eosinophils # (A) 0.1 k/uL (0-0.7); Eosinophils % (A) 2 %; HCT 30.7 % (34.0-46.0); HGB 8.9 gm/dL (11.4-16.0); Hypochromasia Marked; Lymphocytes # (A) 1.6 k/uL (1.0-4.8); Lymphocytes % (A) 24 %; MCH 21.1 pg (25.0-35.0); MCV 72.7 fL (80.0-100.0); Mean Platelet Volume 7.3; Microcytosis Marked; Monocytes # (A) 0.3 k/uL (0-1.0); Monocytes % (A) 5 %; Neutrophils # (A) 4.6 k/uL (1.3-7.7); Neutrophils % (A) 67 %; Platelet Count 283 k/uL (150-450); RBC 4.22 m/uL (3.80-5.40); RDW 18.9 % (11.5-15.5); WBC 6.9 k/uL (3.8-10.6)
[2020-12-13 09:50] LABS: African American GFR (CKD) 84 (>60 ml/min/1.73 sqM); Albumin 3.5 g/dL (3.5-5.0); Anion Gap 5 mmol/L; Blood Urea Nitrogen 16 mg/dL (7-17); Calcium 9.4 mg/dL (8.4-10.2); Carbon Dioxide 28 mmol/L (22-30); Chloride 103 mmol/L (98-107); Glucose 98 mg/dL (74-99); Non-African American GFR(CKD) 73 (>60 ml/min/1.73 sqM); Potassium 3.9 mmol/L (3.5-5.1); Sodium 136 mmol/L (137-145)
[2020-12-13 09:51] LABS: ALT 10 U/L (4-34); AST 23 U/L (14-36); Albumin/Globulin Ratio 1.4; Alkaline Phosphatase 69 U/L (38-126); Globulin 2.5 g/dL; Total Bilirubin 0.3 mg/dL (0.2-1.3)
--- NOTE | 2020-12-13 12:46 | P.DS ---
Providers Date of admission: 12/11/20 22:40 Attending physician: Sd Casillas Primary care physician: Sd Casillas Hospital Course: Diagnoses Opiate dependence Anxiety fibromyalgia Altered mental status -depression Discharge disposition Patient is alert and oriented 3, examination. She is stable for discharge home. We will hold all of her controlled substances and she can follow up with Dr. Casillas in the office in order to discuss. Hospital course This is a pleasant 65-year-old female who presented to the with disorientation to date and time, lethargic and fatigued. Patient does not know why she came to the hospital. This patient is a past medical history significant for ADD, bipolar disorder, opiate dependence with chronic degenerative disc disease. She was seen in Dr. Rich Be is office 2 days ago where he restarted her pain medication on her benzodiazepines. Previously patient had failed a drug screen were her Adderall was not present. Adderall has been discontinued. There is some concern the patient may be taking too much of her controlled substances at times. There is been no fever or chills, nausea vomiting or diarrhea. Patient continues to smoke upwards of a pack per day. We did provide her with a nicotine patch this admission however we will discontinue it on discharge. Patient's verbalized that she'll continue to smoke, despite smoking cessation education. A brain CT this admission showed mild atrophy. No acute intracranial abnormality. Chest x-ray shows mild elevation of the right diaphragm slightly increased compared to old exam. Hemoglobin 9.2 on admission, down to 8.9. There've been no signs of active bleeding. She can repeat this in 2 days outpatient. Additional blood work includes a sodium of 136. Blood pressures are 90s over 50s, afebrile, sinus rhythm 70s and she is 96% on room air. 12/13/2020 Patient is evaluated today resting in the bed. She is alert and oriented 3. Focal neurological exam is negative. She expresses a desire to return home today. Lungs clear to auscultation, S1-S2 auscultated. We will hold pain medications on discharge, and she can follow up with Dr. Casillas in the office. Vital signs are stable today, repeat CBC in 2 days. Please see medication reconciliation for list of current medications. Thank you for allowing us to participate in the care of this patient. Patient Condition at Discharge: Fair Plan - Discharge Summary Discharge Rx Participant: No New Discharge Prescriptions: Continue Fluticasone/Vilanterol [Breo Ellipta 100-25 Mcg Inhaler] 1 puff INHALATION RT-DAILY Sertraline [Zoloft] 200 mg PO DAILY Famotidine [Pepcid] 40 mg PO BID Ibuprofen [Motrin] 600 mg PO Q6H PRN PRN Reason: Pain Simvastatin [Zocor] 20 mg PO HS Albuterol Sulfate [Ventolin HFA] 2 puff INHALATION RT-Q6H PRN PRN Reason: Shortness Of Breath lamoTRIgine 200 mg PO BID Oxybutynin Chloride [Oxybutynin Chloride ER] 10 mg PO DAILY QUEtiapine [SEROquel] 400 mg PO HS QUEtiapine [SEROquel] 150 mg PO DAILY Discontinued Hydrocodone/Acetaminophen [[place] 7.5-325] 1 tab PO Q6HR PRN PRN Reason: Pain clonazePAM [KlonoPIN] 0.5 mg PO BID Dextroamphetamine/Amphetamine [Adderall] 20 mg PO DAILY Discharge Medication List Fluticasone/Vilanterol [Breo Ellipta 100-25 Mcg Inhaler] 1 puff INHALATION RT- DAILY 07/01/15 [History] Sertraline [Zoloft] 200 mg PO DAILY 12/21/16 [History] Famotidine [Pepcid] 40 mg PO BID 04/09/20 [History] Ibuprofen [Motrin] 600 mg PO Q6H PRN 04/09/20 [History] Albuterol Sulfate [Ventolin HFA] 2 puff INHALATION RT-Q6H PRN 12/11/20 [History] Oxybutynin Chloride [Oxybutynin Chloride ER] 10 mg PO DAILY 12/11/20 [History] Simvastatin [Zocor] 20 mg PO HS 12/11/20 [History] lamoTRIgine 200 mg PO BID 12/11/20 [History] QUEtiapine [SEROquel] 150 mg PO DAILY 12/12/20 [History] QUEtiapine [SEROquel] 400 mg PO HS 12/12/20 [History] Follow up Appointment(s)/Referral(s): Sd Casillas MD [Primary Care Provider] - 1 Week Ambulatory/Diagnostic Orders: Complete Blood Count w/diff [LAB.AMB] Time Frame: 2 Days, Location: None Selected Discharge Disposition: HOME SELF-CARE
== END 2020-12-13 13:30 | disposition home or self-care (01) ==
LOC: EC 19:32 → 6NMEDSUR 22:40
PROVIDERS: ADMIT Family Medicine; ATTEND Family Medicine
DX: F11.20 Opioid dependence, uncomplicated (principal); F41.0 Panic disorder [episodic paroxysmal anxiety]; M79.7 Fibromyalgia; R41.0 Disorientation, unspecified; F31.9 Bipolar disorder, unspecified; F25.9 Schizoaffective disorder, unspecified; F90.9 Attention-deficit hyperactivity disorder, unspecified type; F43.10 Post-traumatic stress disorder, unspecified; F17.210 Nicotine dependence, cigarettes, uncomplicated; E78.5 Hyperlipidemia, unspecified; I25.2 Old myocardial infarction; M19.90 Unspecified osteoarthritis, unspecified site; G89.29 Other chronic pain; M54.9 Dorsalgia, unspecified; R00.2 Palpitations; E66.9 Obesity, unspecified; Z68.20 Body mass index [BMI] 20.0-20.9, adult; G57.93 Unspecified mononeuropathy of bilateral lower limbs; Z20.822 Contact with and (suspected) exposure to COVID-19; Z71.6 Tobacco abuse counseling; Z86.14 Personal history of Methicillin resistant Staphylococcus aureus infection; Z98.84 Bariatric surgery status; Z96.653 Presence of artificial knee joint, bilateral; Z90.49 Acquired absence of other specified parts of digestive tract; Z79.899 Other long term (current) drug therapy; Z79.82 Long term (current) use of aspirin; Z82.0 Family history of epilepsy and other diseases of the nervous system; Z80.49 Family history of malignant neoplasm of other genital organs; Z80.3 Family history of malignant neoplasm of breast; Z82.3 Family history of stroke; Z81.8 Family history of other mental and behavioral disorders; Z80.1 Family history of malignant neoplasm of trachea, bronchus and lung
CPT/HCPCS: 99285; 36415; 94640; 93005; 83930; 80053; 80048; 82140; 82375; 82550; 83735; 85025 ×2; 85610; 85730; 80306; 80143; 87635; 80179; 71045; 70450; G0378 ×3; G0480; S4990 ×2; 80320

== ENCOUNTER → 2023-05-26 | Outpatient (CLI) | payer MEDICARE, OTHER | END | disposition home or self-care (01) | LOC: LABWHC1 15:51 | PROVIDERS: ATTEND Internal Medicine Cardiovascular Disease | DX: I95.89 Other hypotension (principal) | CPT/HCPCS: 36415; 82533 ==

== ENCOUNTER → 2023-09-02 | Outpatient (CLI) | payer MEDICARE, OTHER ==
[2023-09-02 15:07] LABS: Basophils # (A) 0.07 X 10*3/uL (0.00-0.10); Basophils % (A) 1.7 %; Eosinophils # (A) 0.23 X 10*3/uL (0.04-0.35); Eosinophils % (A) 5.7 %; HCT 41.5 % (37.2-46.3); HGB 13.2 g/dL (12.0-15.0); Lymphocytes # (A) 1.21 X 10*3/uL (0.90-5.00); Lymphocytes % (A) 29.9 %; MCH 28.9 pg (27.0-32.0); MCHC 31.8 g/dL (32.0-37.0); MCV 90.8 FL (80.0-97.0); Mean Platelet Volume 9.4 FL (9.5-12.2); Monocytes # (A) 0.28 X 10*3/uL (0.20-1.00); Monocytes % (A) 6.9 %; NRBC Per 100 WBC 0 X 10*3/uL (0.00-0.01); Neutrophils # (A) 2.25 X 10*3/uL (1.80-7.70); Neutrophils % (A) 55.6 %; Platelet Count 341 X 10*3/uL (140-440); RBC 4.57 X 10*6/uL (4.10-5.20); RDW 14.2 % (11.5-14.5); WBC 4.05 X 10*3/uL (4.50-10.00)
[2023-09-02 16:48] LABS: Erythrocyte Sedimentation Rate 4 mm/Hr (0-30)
== END | disposition home or self-care (01) ==
LOC: LABWHC1 11:09
PROVIDERS: ATTEND Orthopaedic Surgery
DX: M25.561 Pain in right knee (principal); Z96.651 Presence of right artificial knee joint
CPT/HCPCS: 36415; 85025; 85652; 86140

== ENCOUNTER → 2024-04-14 | Outpatient (CLI) | payer MEDICARE, OTHER ==
--- NOTE | 2024-04-14 14:39 | MM ---
Reason for Exam: Screening (asymptomatic). Last mammogram was performed 1 year(s) and 9 month(s) ago. Patient History: Menarche at age 12. First Full-Term at age 16. Postmenopausal. 2008, Cyst Aspiration on the Right side. Maternal grandmother had breast cancer. Sister had breast cancer, age 42. Risk Values: Tara 5 year model risk: 3.5%. NCI Lifetime model risk: 11.5%. Prior Study Comparison: 11/18/2011 Bilateral Screening Mammogram, [facility]. 11/22/2012 Bilateral Screening Mammogram, [facility]. 01/02/2015 Bilateral Screening Mammogram, [facility]. 07/06/2022 Bilateral Screening Mammogram, [facility]. Tissue Density: There are scattered areas of fibroglandular density. Findings: Analyzed By CAD. Right breast: There is no suspicious group of microcalcifications or new suspicious mass. Benign-appearing calcifications right breast. Left breast: There is no suspicious group of microcalcifications or new suspicious mass. Benign-appearing calcifications left breast. Overall Assessment: Benign, BI-RAD 2 Management: Screening Mammogram of both breasts in [address] [facility] will attempt to contact patient to return for supplemental views and ultrasound if indicated. Patient should continue monthly self-breast exams. A clinical breast exam by your physician is recommended on an annual basis. This exam should not preclude additional follow-up of suspicious palpable abnormalities. Note on Tara scores and lifetime risk: 1. A Tara score greater than 3% is considered moderate risk. If this is the case, consider specialist referral to assess eligibility for a risk reducing agent. 2. If overall lifetime risk for the development of breast cancer is 20% or higher, the patient may qualify for future screening with alternating mammogram and breast MRI. [facility], , 04/14/2024 1:46 PM. Electronically signed and approved by: Jasper Oden DO
--- NOTE | 2024-05-01 08:41 | HM ---
HOLTER MONITOR REPORT STUDY: A 3-day Holter monitor. INDICATION: Rule out cardiac arrhythmia. The patient was monitored for 3 days. The baseline rhythm appeared to be sinus mechanism with an average heart rate of 84 beats per minute. The patient did have a PVC burden at 12.96%. The patient did have multiple episodes of paroxysmal atrial tachycardia as well noted. No significant sinus pause or sinus arrest. CONCLUSION: 1. This is a 3 days' monitor. 2. The baseline rhythm is sinus mechanism. 3. Frequent PVC noted at the burden of 12.96%. 4. Multiple episodes of paroxysmal atrial tachycardia noted. 5. No significant sinus pause or sinus arrest. MMODL / IJN: [id number] /
== END | disposition home or self-care (01) ==
LOC: RADMAMWWP 07:05
PROVIDERS: ATTEND Family Medicine
DX: Z12.31 Encounter for screening mammogram for malignant neoplasm of breast (principal); I49.8 Other specified cardiac arrhythmias; R92.323 Mammographic fibroglandular density, bilateral breasts; R92.1 Mammographic calcification found on diagnostic imaging of breast; I49.3 Ventricular premature depolarization; I47.19 Other supraventricular tachycardia; Z78.0 Asymptomatic menopausal state; Z80.3 Family history of malignant neoplasm of breast
CPT/HCPCS: 77063; 77067; 93225

== ENCOUNTER → 2024-05-12 | Outpatient (CLI) | payer MEDICARE, OTHER ==
--- NOTE | 2024-05-12 14:28 | XR ---
EXAMINATION TYPE: XR femur LT, XR Hip Complete LT DATE OF EXAM: 05/12/2024 CLINICAL INDICATION: Female, 68 years old with history of M25.552 PAIN IN LEFT HIP M79.652 PAIN IN LE FT THIGH, pain TECHNIQUE: Two views of the left hip and femur are obtained. COMPARISON: None FINDINGS: Rzci-ki-soapwihy axial joint space loss in the left hip is present. There is no acute fract ure or dislocation seen in the left hip or femur. Metallic artifact from total left knee arthroplasty is grossly satisfactory in position. Overlying soft tissue appears unremarkable. IMPRESSION: As above. [facility], , 05/12/2024 2:25 PM
== END | disposition home or self-care (01) ==
LOC: RADXRMAIN 13:45
PROVIDERS: ATTEND Family Medicine
DX: M25.552 Pain in left hip (principal); M79.652 Pain in left thigh; Z96.652 Presence of left artificial knee joint
CPT/HCPCS: 73502

== ENCOUNTER → 2024-09-11 | Outpatient (CLI) | payer MEDICARE, OTHER | END | disposition home or self-care (01) | LOC: LABWHC1 16:16 | PROVIDERS: ATTEND Ophthalmology | DX: H47.291 Other optic atrophy, right eye (principal) | CPT/HCPCS: 36415; 85652 ==